=== PATIENT | female | born 1990 | race African-American/Black ===

== ENCOUNTER 2022-07-07 13:56 | Inpatient (IN) | payer OTHER ==
[~2022-07-07] VITALS: Ht 170.2 cm; Wt 93.0 kg
[2022-07-07] MEDS ORDERED: OXYTOCIN DRIP 30 UNITS in IV 1 EA IV PRN (14:00)
[2022-07-07] MEDS ORDERED: METHYLERGONOVINE MALEATE 0.2 MG/ML VIAL (J2210) IM PRN (14:00)
[2022-07-07] MEDS ORDERED: CARBOPROST TROMETHAMINE 250 MCG/ML AMP IM PRN (14:00)
[2022-07-07] MEDS ORDERED: LACTATED RINGER'S 1000 ML IV PRN (14:00)
[2022-07-07] MEDS ORDERED: TRANEXAMIC ACID INJection 1,000 MG in NS 100 ML IV PRN (14:00)
[2022-07-07] MEDS ORDERED: LIDOCAINE 1% MDV 20ML VIAL INFIL PRN (14:00)
[2022-07-07] MEDS ORDERED: LR 1,000 ML IV SCH (14:00)
[2022-07-07 14:13] VITALS: BP 143/84
[2022-07-07 15:45] LABS: HEMATOCRIT 38.1 % (36.0-47.0); HEMOGLOBIN 12.7 g/dl (12.0-15.5); MEAN CORPUSCULAR HEMOGLOBIN 30.5 pg (27.0-33.0); MEAN CORPUSCULAR HGB CONC 33.3 g/dl (32.0-36.5); MEAN CORPUSCULAR VOLUME 91.6 fl (80.0-96.0); PLATELET COUNT, AUTOMATED 240 10^3/uL (150-450); RED BLOOD COUNT 4.16 10^6/uL (4.00-5.40); WHITE BLOOD COUNT 10.5 10^3/uL (4.0-10.0)
[2022-07-07] MEDS ORDERED: TERBUTALINE SULFATE 1 MG/ML VIAL (J3105) SC STA (15:51)
[2022-07-07] MEDS ORDERED: TERBUTALINE SULFATE 1 MG/ML VIAL (J3105) SC ONE (15:55)
[2022-07-07] MEDS ORDERED: LR 500 ML IV PRN (16:10)
[2022-07-07] MEDS ORDERED: NALOXONE INJ 0.4MG/1ML VIAL IV PRN (16:10)
[2022-07-07] MEDS ORDERED: ePHEDrine SULFATE 25 MG/5 ML(5MG/ML) SYRINGE IVP PRN (16:10)
[2022-07-07] MEDS ORDERED: diphenhydrAMINE 50MG/ML VIAL IV PRN (16:10)
[2022-07-07] MEDS ORDERED: EPIDURAL/PCA KEYS XX PRN (16:10)
[2022-07-07] MEDS ORDERED: FENTANYL/ROPIVACAINE/NACL BAG 100 ML EPIDURAL SCH (16:10)
[2022-07-07] MEDS ORDERED: ONDANSETRON 4MG 2ML VIAL IV PRN (16:10)
[2022-07-07 17:30] LABS: CORD GAS ABE A -7.8; CORD GAS ABE V -6.3; CORD GAS HCO3 V 19.6 MEQ/L; CORD GAS O2 SAT A 34.6 %; CORD GAS O2 SAT V 56.5 %; CORD GAS PCO2 A 49.2 mmHg; CORD GAS PCO2 V 40.1 mmHg; CORD GAS PH A 7.228 UNITS; CORD GAS PH V 7.306 UNITS; CORD GAS PO2 A 18.5 mmHg; CORD GAS PO2 V 25.4 mmHg; CORD GAS SBC A 16.8 MEQ/L; CORD GAS SBC V 18.4 MEQ/L; CORD GAS TCO2 A 21.6 MEQ/L; CORD GAS TCO2 V 20.8 MEQ/L
[2022-07-07] MEDS ORDERED: RHOGAM 300MCG (1500IU) INJ IM SCH (18:00)
[2022-07-07] MEDS ORDERED: DIBUCAINE 1% OINTMENT 30GM TOP PRN (18:00)
[2022-07-07] MEDS ORDERED: ACETAMINOPHEN TAB 650MG DOSE (2X325MG) PO PRN (18:00)
[2022-07-07] MEDS ORDERED: DOCUSATE SODIUM 100MG CAPSULE PO PRN (18:00)
[2022-07-07] MEDS ORDERED: METHYLERGONOVINE MALEATE 0.2 MG TAB PO PRN (18:00)
[2022-07-07 19:11] VITALS: BP 139/73
[2022-07-07 20:05] VITALS: BP 121/70
[2022-07-08] MEDS: IBUPROFEN 800 MG TAB PO PRN ×2 (03:17→19:57)
[2022-07-08 05:40] VITALS: BP 118/71
[2022-07-08] MEDS: PRENATAL VITAMINS CHEWABLE TABLET PO SCH (09:09)
[2022-07-08] MEDS ORDERED: medroxyPROGESTERone ACET IM SUSP 150 MG/ML VIAL IM ONE (10:00)
[2022-07-08 18:00] VITALS: BP 120/77
[2022-07-09 05:53] VITALS: BP 119/78
[2022-07-09] MEDS ORDERED: medroxyPROGESTERone ACET IM SUSP 150 MG/ML VIAL IM ONE ×2 (08:00→08:20)
[2022-07-09] MEDS: PRENATAL VITAMINS CHEWABLE TABLET PO SCH (08:29)
[2022-07-09] MEDS ORDERED: MEASLES,MUMPS,RUBELLA VACCINE INJ (MMR-II) SC.IMMUN ONE (09:00)
== END 2022-07-09 11:30 | disposition home or self-care (01) | DRG 807 ==
LOC: M LDO 13:56 → M LDI 14:22 → M OBS 19:57
PROVIDERS: ADMIT Registered Nurse; ATTEND Registered Nurse
PROC: 10E0XZZ Delivery of Products of Conception, External Approach (ICD-10-PCS; principal; 2022-07-07)
DX: O69.81X0 Labor and delivery complicated by cord around neck, without compression, not applicable or unspecified (principal); Z37.0 Single live birth; O77.0 Labor and delivery complicated by meconium in amniotic fluid; Z3A.39 39 weeks gestation of pregnancy; O76 Abnormality in fetal heart rate and rhythm complicating labor and delivery; O66.0 Obstructed labor due to shoulder dystocia; O70.0 First degree perineal laceration during delivery